=== PATIENT | female | born 1985 | race Caucasian/White ===

== ENCOUNTER 2020-06-06 08:31 | Outpatient (CLI) | payer OTHER ==
[2020-06-06 08:48] LABS: BASOPHILS % (AUTO) 0.9 %; EOSINOPHILS # (AUTO) 0.2 10^3/uL (0.0-0.7); EOSINOPHILS % (AUTO) 4.5 %; HGB - HEMOGLOBIN 12.8 g/dL (12.0-16.0); LYMPHOCYTES # (AUTO) 1.8 10^3/uL (1.5-3.5); MEAN CORPUSCULAR HEMOGLOBIN 30.9 pg (27.0-31.0); MEAN CORPUSCULAR HGB CONC 33.3 g/dL (32.0-36.0); MEAN CORPUSCULAR VOLUME 92.8 fL (81.0-99.0); MEAN PLATELET VOLUME 10.6 fL (7.9-10.8); MONOCYTES # (AUTO) 0.4 10^3/uL (0.0-1.0); MONOCYTES % (AUTO) 7.5 %; NEUTROPHILS # (AUTO) 2.3 10^3/uL (1.5-6.6); NEUTROPHILS % (AUTO) 47.9 %; PLT - PLATELET COUNT 193 10^3/uL (130-450); RED BLOOD COUNT 4.14 10^6/uL (4.20-5.40); RED CELL DISTRIBUTION WIDTH 12.1 % (12.0-15.0); WHITE BLOOD COUNT 4.7 x10^3/uL (4.8-10.8)
[2020-06-06 09:06] LABS: CALCIUM 9.6 mg/dL (8.5-10.3); CREATININE 0.8 mg/dL (0.4-1.0)
== END 2020-06-06 08:32 | disposition home or self-care (01) ==
LOC: LAB 08:31
PROVIDERS: ATTEND Obstetrics & Gynecology
DX: Z01.812 Encounter for preprocedural laboratory examination (principal); N92.0 Excessive and frequent menstruation with regular cycle
CPT/HCPCS: 36415; 80048; 85025

== ENCOUNTER 2020-06-08 06:26 | Inpatient (IN) | payer OTHER ==
[2020-06-08] MEDS ORDERED: LACTATED RINGERS 1,000 ML IV ONE ×3 (06:36→10:39)
[2020-06-08] MEDS ORDERED: ACETAMINOPHEN 1,000 MG/100 ML 100 ML IV ONE (06:37)
[2020-06-08] MEDS ORDERED: GABAPENTIN 400 MG CAPSULE ONE (06:37)
[2020-06-08] MEDS ORDERED: CELECOXIB 100 MG CAPSULE PO ONE (06:37)
[2020-06-08] MEDS ORDERED: ceFAZolin 2 GM/50 ML 2 GM/50 ML BAG IV ONE (06:37)
[2020-06-08 06:52] LABS: HCG UR QUAL NEGATIVE
[2020-06-08] MEDS ORDERED: MIDAZOLAM 2 MG/2 ML VIAL ONE (07:08)
[2020-06-08] MEDS ORDERED: fentaNYL 100 MCG/2 ML VIAL ONE (07:08)
[2020-06-08] MEDS ORDERED: LIDOCAINE-MPF 2% 5 ML VIAL ONE (07:09)
[2020-06-08] MEDS ORDERED: PROPOFOL 200 MG/20 ML VIAL IVP ONE (07:09)
[2020-06-08] MEDS ORDERED: LIDOCAINE 2%-EPI 1:100000 20 ML MDV ONE (07:14)
[2020-06-08] MEDS ORDERED: BUPIVACAINE 0.5% PF 30 ML VIAL ONE (07:14)
--- NOTE | 2020-06-08 07:27 | ANESTHESIA ---
Pre-Anesthesia VS, & Labs - Diagnosis heavy menstrual bleeding - Procedure TLH, cysto Vital Signs: Temp Pulse Resp BP Pulse Ox 36.8 C 82 16 133/85 H 100 06/08/20 06:45 06/08/20 06:45 06/08/20 06:45 06/08/20 06:45 06/08/20 06:45 Height: 5 ft 6.93 in Weight (kg): 66.9 kg Body Mass Index: 23.1 BMI Classification: Healthy weight - NPO Last Fluid Intake: w/morning meds Last Food Intake: >8h - Is Patient ?: No - Lab Results Current Lab Results: Laboratory Tests 06/08/20 07:09: POC Whole Bld Glucose 94 Lab results reviewed: Yes Home Medications and Allergies Home Medications: Ambulatory Orders Multivitamin 1 each PO 06/02/20 Multivitamin 1 each PO 06/02/20 Allergies/Adverse Reactions: Allergies Allergy/AdvReac Type Severity Reaction Status Date / Time No Known Drug Allergies Allergy Verified 06/02/20 10:14 Anes History & Medical History - Anesthetic History Anesthesia Complications: reports: No previous complications Family history of Anesthesia Complications: Denies Family history of Malignant Hyperthermia: Denies - Medical History Cardiovascular: reports: None Pulmonary: reports: None Gastrointestinal: reports: None Urinary: reports: None Musculoskeletal: reports: None Endocrine/Autoimmune: reports: None Skin: reports: None Exam General: Alert, Oriented x3, Cooperative Dental: WNL Mouth Openin Fingerbreadth Neck Mobility: Normal Mallampati classification: II Thyromental Distance: 4-6 cm Respiratory: Lungs clear, Normal breath sounds, No respiratory distress Cardiovascular: Regular rate Neurological: Normal speech Mental/Cognitive Status: Alert/Oriented X3, Normal for patient Cognitive Status: Within normal limits Plan Anesthesia Type: General Consent for Procedure(s) Verified and Reviewed: Yes Code Status: Attempt Resuscitation ASA classification: 1-Healthy patient Is this case an emergency?: No
[2020-06-08] MEDS ORDERED: VASOPRESSIN 20 UNIT/ML VIAL ONE (07:38)
[2020-06-08] MEDS ORDERED: ONDANSETRON 4 MG/2 ML VIAL IVP PRN ×2 (07:59→09:53)
[2020-06-08] MEDS ORDERED: fentaNYL 100 MCG/2 ML VIAL IVP PRN (07:59)
[2020-06-08] MEDS ORDERED: NALOXONE 0.4 MG/ML VIAL IVP PRN (07:59)
[2020-06-08] MEDS ORDERED: ATROPINE ABBOJECT 1 MG/10 ML SYRINGE IVP PRN (07:59)
[2020-06-08] MEDS ORDERED: METOCLOPRAMIDE 10 MG/2 ML VIAL IVP PRN (07:59)
[2020-06-08] MEDS ORDERED: HYDROmorphone 0.5 MG/0.5 ML SYRINGE IVP PRN (07:59)
[2020-06-08] MEDS ORDERED: ePHEDrine 50 MG/ML VIAL IVP PRN (07:59)
[2020-06-08] MEDS ORDERED: MORPHINE 2 MG/ML CARPUJECT IVP PRN (07:59)
[2020-06-08] MEDS ORDERED: LACTATED RINGERS 1,000 ML IV SCH (08:00)
[2020-06-08] MEDS ORDERED: ONDANSETRON 4 MG/2 ML VIAL ONE ×2 (08:07→10:09)
[2020-06-08] MEDS ORDERED: DEXAMETHASONE 4 MG/ML VIAL ONE (08:07)
[2020-06-08] MEDS ORDERED: VASOPRESSIN 20 UNIT/ML VIAL IVP ONE ×3 (08:11)
[2020-06-08] MEDS ORDERED: SODIUM CHLORIDE 0.9% 10 ML ONE (08:22)
[2020-06-08] MEDS ORDERED: NEOSTIGMINE 1 MG/1 ML 10 ML MDV ONE (09:51)
[2020-06-08] MEDS ORDERED: GLYCOPYRROLATE 1 MG/5 ML VIAL ONE (09:51)
[2020-06-08] MEDS ORDERED: MORPHINE 10 MG/ML VIAL IVP PRN (09:53)
[2020-06-08] MEDS ORDERED: oxyCODONE 5 MG TABLET PO PRN (09:53)
[2020-06-08] MEDS ORDERED: diphenhydrAMINE 25 MG CAPSULE PO PRN (10:05)
--- NOTE | 2020-06-08 10:11 | OPERATIVE REPORT ---
Operative Report - General Admit Date: 06/08/20 Procedure Date: 06/08/20 Planned Procedure: Total Laparoscopic Hysterectomy, Bilateral Salpingectomy, Cystoscopy Pre-Op Diagnosis: Heavy Menstrual Bleeding, pelvic pain Procedure Performed: Total Vaginal Hysterectomy, Bilateral Salpingectomy, Cystoscopy Post Op Diagnosis: Heavy Menstrual Bleeding, pelvic pain, pelvic adhesive disease - Procedure Note Primary Surgeon: Bria Anesthesia Provider: Fran Anesthesia Technique: General ET tube Pathology: Uterus and cervix, right and left fallopian tubes IV Fluids (mL): 400 (Lactated Ringers) Estimated Blood Loss (mL): 100 Urine Output (mL): 100 Indications: 34 year old female using 's vasectomy for contraception, with heavy menstrual bleeding and pelvic pain/dyspareunia, finished with childbearing and declined hormonal contraceptive management for heavy menses, desiring definitive management with hysterectomy. Her uterus had good mobility but descent limited on clinic pelvic exam. She was counseled and consented for hysterectomy with bilateral salpingectomy and cystoscopy, with hysterectomy via a vaginal vs. laparoscopic approach pending exam in the operating room. Findings: Exam under anesthesia: Approximately 7 week sized uterus, midline, mobile, with good descent, normal shape and contour. No adnexal masses. Given good uterine descent and mobility, proceeded with vaginal hysterectomy. Intraoperatively: Normal uterus and cervix. Normal left fallopian tube and ovary. Right ovary and fallopian tube were adhesed to pelvic side wall, but limited visualization with normal appearing ovary noted. Cystoscopy: Normal bladder, intact without lacerations or sutures noted. Brisk efflux of urine was visualized from bilateral ureteral orifices. Complications: None - Other Other Information/Narrative: OPERATIVE PROCEDURE: The patient was taken to the operating room where general anesthesia was performed without any complications. An examination under anesthesia was performed notable for an adequate pelvis and good mobility and descent of the uterus. Decision was made to proceed with vaginal hysterectomy. The patient was prepared and draped in the usual sterile fashion in the dorsal lithotomy position with Cliff stirrups. A weighted speculum and Palacio retractor were placed inside the vagina, and thyroid-Yamilka tenacula were used to grasp the cervix. A mixture of dilute pitressin (20units Pitressin/ml mixed with 19ml of injectable saline) was then injected just below the vaginal mucosa around the planned colpotomy site. Once this was complete, the cervix was incised in a circular fashion using Bovie electrocautery. The anterior cul-de-sac, where the bladder reflection was identified, was lifted and entered sharply with Metzenbaum scissors. A Clinton catheter was placed to drain the bladder. Attention was turned to the posterior cul-de-sac which was entered sharply with Melendez scissors. A long weighted speculum was then placed inside the patients vagina and placed in such a way that it protected the patients rectum. The posterior colpotomy vaginal incision was tagged with 0 vicryl. The uterosacral ligaments were then clamped with Agueda clamps, cut with Melendez scissors, and tied and tagged with 0-Vicryl. The uterine arteries and cardinal ligament complexes were then serially clamped and ligated with Ligasure device. The utero-ovarian ligaments and cornua were then easily identified and clamped and ligated with Ligasure, with a portion of the left fallopian tube attached to the uterus. The specimen was passed off the field. Once the uterus was removed, the remainder of the left fallopian tube was grasped with Rampart forceps and clamped and ligated with the Ligasure. Attention was turned to the right fallopian tube, which was grasped with Susana forceps. Gentle tugging on the right tube with noted limited mobility of the right ovary, which was noted to be adhesed to the pelvic side wall along with a portion of the right tube. As much of the right fallopian tube was removed by clamping and ligating with Ligasure. All the specimens were handed off the field for pathology evaluation. Good hemostasis was noted along both ovarian pedicle lines. The vaginal cuff was noted to have brisk bleeding on the left posterior peritoneal edge, and bleeding was controlled with 2 [id number] stitches using 0-Vicryl. The vaginal cuff was then closed using running 0-Vicryl suture, taking care to incorporate anterior and posterior peritoneum into the closure as well as the uterosacral ligaments at each apex. The vagina was irrigated and the vaginal cuff had excellent hemostasis. The Clinton catheter was removed and cystoscopy was performed. A complete survey of the bladder and urethra revealed no defects or injury to the bladder or urethra and brisk efflux of urine was noted from bilateral ureteral orifices. The cystoscope was removed. The Clinton catheter was replaced and the bladder again drained. Good hemostasis was again visualized at the end of the procedure. All instruments were removed from the vagina. The patient tolerated the procedure well. All sponge, sharp, and instrument counts were correct x2. The patient was awakened from anesthesia and taken to the recovery room in stable condition with a Clinton catheter in place.
[2020-06-08] MEDS ORDERED: HYDROmorphone 1 MG/ML CARPUJECT ONE (10:19)
[2020-06-08] MEDS: ACETAMINOPHEN 500 MG TABLET PO SCH ×3 (11:05→21:40)
--- NOTE | 2020-06-08 11:05 | ANESTHESIA POST OP EVALUATION ---
Anesthesia Post Eval - Post Anesthesia Eval Vitals: Last Vital Signs Temp 36.4 C L 06/08/20 10:45 Pulse 65 06/08/20 10:45 Resp 14 06/08/20 10:45 BP 115/64 06/08/20 10:45 Pulse Ox 100 06/08/20 10:45 CV Function Including HR & BP: positive: Stable Pain Control: positive: Satisfactory Nausea & Vomiting: positive: Negative Mental Status: positive: Baseline Respiratory Status: Airway Patent Hydration Status: Satisfactory Anesthesia Complications: positive: None
[2020-06-08] MEDS: LACTATED RINGERS 1,000 ML IV SCH ×2 (11:07→20:09)
[2020-06-08] MEDS: SIMETHICONE CHEW 80 MG TABLET PO SCH ×2 (13:35→21:40)
--- NOTE | 2020-06-08 15:01 | PHARMACY PROGRESS NOTE ---
- Best Possible Medication History Admit Date and Time: 06/08/20625 Processed by: Pharmacy Medication History completed: Yes Patient Interview: Completed Secondary Source(s): Physician records, Pharmacy records, Insurance records (PATIENT INTERVIEWED BY SALES PRODUCT MANAGER. PATIENT ABLE TO CONFIRM HOME MEDICATIONS ) As the person ultimately responsible for medication therapy, providers are able to order a medication from an existing home medication list in [facility] via the "Reconcile Routine" prior to Confirmation of that medication by customer support technician. Such practice is discouraged except when the physician, in their clinical judgment, deems that a medical need exists for a medication without regard to previous use.
[2020-06-08] MEDS: KETOROLAC 30 MG/ML VIAL IVP SCH (21:40)
[2020-06-08] MEDS: DOCUSATE SODIUM 100 MG CAPSULE PO SCH (21:40)
[2020-06-09] MEDS: ACETAMINOPHEN 500 MG TABLET PO SCH ×2 (04:12→08:55)
[2020-06-09] MEDS: KETOROLAC 30 MG/ML VIAL IVP SCH (04:12)
[2020-06-09 05:15] LABS: BASOPHILS % (AUTO) 0.4 %; EOSINOPHILS # (AUTO) 0.1 10^3/uL (0.0-0.7); EOSINOPHILS % (AUTO) 1.3 %; HGB - HEMOGLOBIN 10.2 g/dL (12.0-16.0); LYMPHOCYTES # (AUTO) 2.6 10^3/uL (1.5-3.5); LYMPHOCYTES % (AUTO) 33.7 %; MEAN CORPUSCULAR HEMOGLOBIN 30.3 pg (27.0-31.0); MEAN CORPUSCULAR HGB CONC 32.6 g/dL (32.0-36.0); MEAN CORPUSCULAR VOLUME 92.9 fL (81.0-99.0); MEAN PLATELET VOLUME 11.6 fL (7.9-10.8); MONOCYTES # (AUTO) 0.6 10^3/uL (0.0-1.0); MONOCYTES % (AUTO) 8.1 %; NEUTROPHILS # (AUTO) 4.3 10^3/uL (1.5-6.6); NEUTROPHILS % (AUTO) 56.4 %; PLT - PLATELET COUNT 174 10^3/uL (130-450); RED BLOOD COUNT 3.37 10^6/uL (4.20-5.40); RED CELL DISTRIBUTION WIDTH 12.1 % (12.0-15.0); WHITE BLOOD COUNT 7.6 x10^3/uL (4.8-10.8)
[2020-06-09] MEDS: SIMETHICONE CHEW 80 MG TABLET PO SCH (05:50)
[2020-06-09] MEDS: LACTATED RINGERS 1,000 ML IV SCH (05:50)
[2020-06-09 08:45] VITALS: BP 118/69
--- NOTE | 2020-06-09 08:47 | DISCHARGE SUMMARY ---
"Discharge Summary Admit Date: 06/08/20 Discharge Date: 06/09/20 Discharging Provider: Bria Code Status: Attempt Resuscitation Condition at Discharge: Good Discharge Disposition: 01 Home, Self Care - DIAGNOSES Admission Diagnoses: Heavy Menstrual Bleeding, Pelvic Pain Discharge Diagnoses with Status of Each Condition: 1. Status post hysterectomy - patient doing well, hemodynamically stable 2. Heavy Menstrual Bleeding - treated with hysterectomy 3. Pelvic Pain - pelvic adhesive disease to right ovary noted intraoperatively - HPI History of Present Illness: 34 year old female using 's vasectomy for contraception, with heavy menstrual bleeding, and pelvic pain/dyspareunia. She is finished with childbearing and desired definitive surgical management of heavy menses with hysterectomy. She was counseled and constented for hysterectomy, bilateral salpingectomy, and cystoscopy. - CONSULTS | PROCEDURES Procedures: Total Vaginal Hysterectomy, Bilateral Salpingectomy, Cystoscopy - HOSPITAL COURSE Hospital Course: The patient underwent uncomplicated total vaginal hysterectomy, bilateral salpingectomy, and cystoscopy for heavy menstrual bleeding and pelvic pain, and was admitted for post-surgical management. Her hospital course was unremarkable. She was voiding spontaneously, tolerating a regular diet, ambulating, and had good pain control on oral pain medications. She was meeting discharge criteria and was discharged home in stable condition. - ALLERGIES Allergies/Adverse Reactions: Allergies Allergy/AdvReac Type Severity Reaction Status Date / Time No Known Drug Allergies Allergy Verified 06/02/20 10:14 - MEDICATIONS Home Medications: Ambulatory Orders Medication Instructions Recorded Confirmed Acetaminophen [Aphen] 650 mg PO Q4H PRN 06/08/20 06/09/20 Ibuprofen [Motrin] 800 mg PO Q8H PRN 06/08/20 06/09/20 Multivitamin [Daily Multiple 1 tab PO DAILY 06/08/20 06/09/20 Vitamin] oxyCODONE [Roxicodone] 5 mg PO Q6H PRN 06/08/20 06/09/20 Home Medications Other | Comments: Patient has already picked up her discharge medications: acetaminophen, ibup rofen, and oxycodone. - PHYSICAL EXAM AT DISCHARGE General Appearance: positive: No acute distress, Alert Eyes Bilateral: positive: Normal inspection ENT: positive: ENT inspection nml, No signs of dehydration Neck: positive: Nml inspection Respiratory: positive: No respiratory distress Cardiovascular: positive: Regular rate & rhythm Peripheral Pulses: positive: 2+ Abdomen: positive: Other (Appropriate mild tendness to palpation) Back: positive: Nml inspection Skin: positive: Color nml, No rash Extremities: positive: Non-tender, No pedal edema Neurologic/Psychiatric: positive: Oriented x3, Mood/affect nml Physical Exam Other/Comments: - no vulvar/labial edema, scant blood on peripad - LABS Result Diagrams: 06/09/20 04:28 - FOLLOW UP Follow Up: Follow-up at [facility] ([phone]) as scheduled on [id number]. - TIME SPENT Time Spent in Discharge (Minutes): 15"
[2020-06-09] MEDS: DOCUSATE SODIUM 100 MG CAPSULE PO SCH (08:54)
[2020-06-09] MEDS ORDERED: IBUPROFEN 800 MG TABLET PO SCH (10:00)
== END 2020-06-09 10:10 | disposition home or self-care (01) | DRG 743 ==
LOC: MS2 06:26
PROVIDERS: ADMIT Obstetrics & Gynecology; ATTEND Obstetrics & Gynecology
PROC: 0UT77ZZ Resection of Bilateral Fallopian Tubes, Via Natural or Artificial Opening (ICD-10-PCS; 2020-06-08)
PROC: 0UT97ZZ Resection of Uterus, Via Natural or Artificial Opening (ICD-10-PCS; principal; 2020-06-08 07:30)
DX: N92.0 Excessive and frequent menstruation with regular cycle (principal); N73.6 Female pelvic peritoneal adhesions (postinfective); R10.2 Pelvic and perineal pain; N94.10 Unspecified dyspareunia
CPT/HCPCS: 36415; 81025; 85025; 86850; 86900; 86901; A9270; J0131; J0690; J1170; J7120